=== PATIENT | male | born 1935 | race Caucasian/White ===

== ENCOUNTER 2017-07-29 21:25 | Observation (INO) | payer MEDICARE, OTHER ==
[~2017-07-29] VITALS: Ht 165.1 cm; Wt 183.8 kg
[~2017-07-29 21:25] MED LIST: ASPIRIN LOW DOS81 M2 PO; DIGOXIN0.125 MG PO; LOSARTAN POT25 MG PO; METOPROL TAR25 MG PO; VANCOMYCIN HCL1 GM PO; WARFARIN2.5 MG PO
[2017-07-29] MEDS ORDERED: SYNTHROID175 MCG PO (22:00)
[2017-07-29 22:01] LABS: IMMATURE GRANULOCYTES 0.4 % (0.0-1.0); MEAN CORPUSCULAR HGB 27.7 pG CALC (26.0-32.0); MEAN CORPUSCULAR HGB CONC 32.2 g/L CALC (32.0-36.0); NEUT# 9.4 thou/uL (1.82-7.42); RED BLOOD COUNT 5.78 mill/uL (4.70-6.10); RED CELL DISTRI WIDTH 13.1 % (11.5-15.5)
[2017-07-29 22:02] LABS: HEMATOCRIT 49.7 % (39.0-50.0)
[2017-07-29 22:05] LABS: ALBUMIN 4.1 g/dL (3.2-5.0); ALKALINE PHOSPHATASE 109 u/l (38-126); AMYLASE 84 u/l (30-110); ANION GAP 18 (6-22 (CALC)); BILIRUBIN, TOTAL 0.8 mg/dL (0.0-1.4); BUN 15 mg/dL (8-23); BUN/CREATININE RATIO 15 (12-20 (CALC)); CARBON DIOXIDE 26 mmol/l (22-30); CHLORIDE 99 mmol/l (95-108); GFR > 60 ML/MIN (>=60 (CALC)); GFR FOR AFR.AMER. > 60 ML/MIN (>=60 (CALC)); LIPASE 567 u/l (23-300); POTASSIUM 4.7 mmol/l (3.5-5.1); SGOT/AST 22 u/l (19-48); SGPT/ALT 34 u/l (11-66); SODIUM 138 mmol/l (137-146); TOTAL PROTEIN 7.5 g/dL (6.3-8.2)
[2017-07-29 22:17] LABS: MYOGLOBIN 55 ng/mL (0 - 121)
[2017-07-29 23:36] LABS: URINE BILIRUBIN - DIPSTICK NEGATIVE (NEGATIVE); URINE BLOOD DIPSTICK NEGATIVE (NEGATIVE); URINE COLOR YELLOW; URINE GLUCOSE - DIPSTICK NEGATIVE (NEGATIVE); URINE KETONE TRACE mg/dL (NEGATIVE); URINE LEUK ESTERASE NEGATIVE (NEGATIVE); URINE NITRITE - DIPSTICK NEGATIVE (Negative); URINE PH 6.5 (4.5-8.0); URINE PROTEIN - DIPSTICK NEGATIVE (NEG-TRACE); URINE UROBILINOGEN - DIPSTICK 0.2 E.U./dL (0.2)
[2017-07-29 23:39] LABS: URINE CLARITY CLEAR
[2017-07-30 00:22] LABS: DIGOXIN 0.7 ng/mL (0.8-2.0)
[2017-07-30 00:22] LABS: INTERNATIONAL NORMALIZED RATIO 2.1 RATIO (0.7-1.3); PROTHROMBIN TIME 23.7 SECONDS (9.0-12.5)
[2017-07-30 00:40] VITALS: BP 150/85
[2017-07-30 00:48] LABS: TSH, 3RD GENERATION 0.56 uIU/mL (0.47 - 4.68)
[2017-07-30 04:00] VITALS: BP 165/79
[2017-07-30 08:20] VITALS: BP 146/66
[2017-07-30 11:44] VITALS: BP 151/70
[2017-07-30 12:35] LABS: ANION GAP 16 (6-22 (CALC)); BUN 12 mg/dL (8-23); BUN/CREATININE RATIO 15 (12-20 (CALC)); CARBON DIOXIDE 28 mmol/l (22-30); CHLORIDE 96 mmol/l (95-108); CREATININE 0.9 mg/dL (0.7-1.3); GFR > 60 ML/MIN (>=60 (CALC)); GFR FOR AFR.AMER. > 60 ML/MIN (>=60 (CALC)); LIPASE 201 u/l (23-300); POTASSIUM 4.5 mmol/l (3.5-5.1); SODIUM 135 mmol/l (137-146)
[2017-07-30 12:56] VITALS: BP 151/70
[2017-07-30] MEDS ORDERED: PANTOPRAZOLE SO40 M1 PO (13:14)
[2017-07-30] MEDS ORDERED: ZOFRAN ODT4 MG PO (13:29)
== END 2017-07-30 15:10 | disposition home or self-care (01) ==
LOC: ED 21:25 → ED-I 23:20 → ED 07-30 00:05 → MS2 07-30 00:06
PROVIDERS: Emergency Medicine; ADMIT Internal Medicine; ATTEND Internal Medicine
DX: R07.9 Chest pain, unspecified (principal); R10.13 Epigastric pain; I48.2 Chronic atrial fibrillation; I25.10 Atherosclerotic heart disease of native coronary artery without angina pectoris; I11.0 Hypertensive heart disease with heart failure; I50.9 Heart failure, unspecified; E03.9 Hypothyroidism, unspecified; Z95.1 Presence of aortocoronary bypass graft; Z95.810 Presence of automatic (implantable) cardiac defibrillator; Z87.891 Personal history of nicotine dependence; Z79.01 Long term (current) use of anticoagulants
CPT/HCPCS: Q9967; S0164

== ENCOUNTER 2020-01-24 12:01 | Emergency (ER) | payer MEDICARE, OTHER ==
[~2020-01-24] VITALS: Ht 165.1 cm; Wt 84.0 kg
[~2020-01-24 12:01] MED LIST changes: +PANTOPRAZOLE SO40 M1 PO; +SYNTHROID175 MCG PO; +ZOFRAN ODT4 MG PO
[2020-01-24] MEDS ORDERED: WARFARIN2 MG PO (12:28)
[2020-01-24 12:55] LABS: INTERNATIONAL NORMALIZED RATIO 3.1 RATIO (0.7-1.3)
[2020-01-24] MEDS ORDERED: KEFLEX500 M1 PO (13:36)
[2020-01-24 13:46] VITALS: BP 140/85
== END 2020-01-24 13:50 | disposition home or self-care (01) ==
LOC: ED 12:01
PROVIDERS: Student in an Organized Health Care Education/Training Program
DX: S51.812A Laceration without foreign body of left forearm, initial encounter (principal); I10 Essential (primary) hypertension; W01.118A Fall on same level from slipping, tripping and stumbling with subsequent striking against other sharp object, initial encounter; Y92.009 Unspecified place in unspecified non-institutional (private) residence as the place of occurrence of the external cause; Z79.01 Long term (current) use of anticoagulants